=== PATIENT | male | born 1950 ===

== ENCOUNTER 2021-05-08 12:18 | Emergency (ER) | payer SELFPAY | END 2021-05-08 19:56 | LOC: ER 12:25 | DX: R69 Illness, unspecified (principal) ==

== ENCOUNTER 2021-05-08 12:21 | Emergency (ER) | payer MEDICARE, OTHER, SELFPAY ==
--- NOTE | 2021-05-08 12:15 | DI.RAD_ITS ---
Exam(s) XR SHOULDER LT COMPLETE 2+V EXAM: XR SHOULDER LT COMPLETE 2+V CLINICAL HISTORY: Left shoulder deformity, R/O Fracture/Dislocation. TECHNIQUE: 2D digital imaging was performed. COMPARISON: No exams were available for comparison FINDINGS: There is an oblique fracture of the humeral head and neck. This extends through the inferior aspect of the greater tuberosity and extends a mid medial E to violate the medial cortex where there is a co mminuted fragment in the inferior recess area. There is no dislocation of the glenohumeral joint. S ubacromial space is not diminished. AC joint is not dislocated and there is no obvious fracture of t he ipsilateral clavicle. No adjacent rib fractures identified. IMPRESSION: DATA REPOSITORY: RADIATION DOSE DELIVERED:
[2021-05-08 12:23] VITALS: BP 131/75; PULSE 60; TEMP 37.1; O2SAT 98
--- NOTE | 2021-05-08 12:30 | W.ED.GENAD ---
Discharge Plan Disposition Patient Disposition: HOME Condition: Stable Discharge Details Clinical Impression: Comminuted left humeral fracture Primary Care Provider: Narcisa,Local ED Provider: Ada Ibarra Home Meds and New Rx's Prescriptions: New tramadol 50 mg tablet 50 mg PO Q8H PRN (Reason: pain) 3 Days Qty: 7 RF: 0 No Action losartan 25 mg Tablet PO DAILY RF: 0 Discharge Instructions Instructions: Proximal Humerus Fracture (ED) Additional Instructions: Wear sling continuously for immobilization. Please take Tylenol or Ibuprofen with food every 4-6 hours as needed for pain and swelling. Take tramadol as directed with food no driving. Dr. Tavares with orthopedics will call you to arrange follow-up. If you have any worsening numbness tingling cold blue hand please return to the ED or call orthopedics immediately. Follow up with primary care provider in 3-5 days. Return to ED sooner if any worsening or concerns. Increase oral fluids. Referrals: Barney Tavares MD [ [facility] ST[facility]FF PHYSICIAN] - Discharge Data Discharge Date/Time-TO BE ENTERED AT DEPARTURE: 05/08/21 15:35 Medical Decision Making 70-year-old male presents to the ER with chief complaint of fall. Patient states that he was on top of a pool table on a chair working on an alarm system when the chair leg broke and he fell backwards. He denies hitting his head no loss of consciousness denies any C-spine, T-spine pain. He is complaining of left shoulder pain. Denies any chest pain abdominal pain. Pelvis is stable. He is alert and oriented x4 upon arrival. 1325: X-ray shows proximal humeral head comminuted fracture Ortho paged. 1328: Spoke with RN in OR Dr. Tavares in OR at this time. Will call back. 1338: Spoke with [facility] OR nurse once again regarding patient case and details. 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 I did speak with Dr. Tavares with orthopedic surgeon he was able to personally view the x-rays. He recommends a sling and follow-up with Ortho within 1 week. He did give recommendations for orthopedic surgeon around [place] area where patient is from. Discussed plan of care with patient who verbalized understanding. Patient was given prescription for tramadol sent home 2 tablets here in the department. Instructed to take Tylenol or ibuprofen as needed for pain and swelling. Instructed to wear sling at all times for immobilization. HPI General Mode of arrival: ambulatory. Date/Time Provider Initiated Documentation: 05/08/21 12:22. Limitations to Documentation: no limitations. Information obtained by: patient. HPI Narrative: 70-year-old male presents to the ER with chief complaint of fall. Patient states that he was on top of a pool table on a chair working on an alarm system when the chair leg broke and he fell backwards. He denies hitting his head no loss of consciousness denies any C-spine, T-spine pain. He is complaining of left shoulder pain. Denies any chest pain abdominal pain. Pelvis is stable. He is alert and oriented x4 upon arrival. Related Data Home Medications Medication Instructions Recorded Confirmed losartan mg PO DAILY 05/08/21 tramadol 50 mg PO Q8H PRN 3 Days #7 tab 05/08/21 Previous Rx's Medication Instructions Recorded tramadol 50 mg PO Q8H PRN 3 Days #7 tab 05/08/21 Allergies Allergy/AdvReac Type Severity Reaction Status Date / Time shellfish derived Allergy Unverified 05/08/21 12:28 Ctnkqfk-Ubt-Sok Reductase Allergy Unverified 05/08/21 12:28 Inhibitor General Stated Complaint: Orthopedic TRISTAN: 3 Review of Systems All systems reviewed & are unremarkable except as noted in HPI and below Musculoskeletal Musculoskeletal: Reports as per HPI, Denies back pain, Reports deformity (Left shoulder), Reports arthralgias, Reports loss of height and Reports numbness (Left upper extremity distal radial pulses intact) Neurologic Neurologic: Reports numbness (Left upper extremity distal radial pulses intact) [facility] Social History Smoking/Tobacco Use Status: Never Smoking risk assessment performed?: Yes Alcohol Intake: current Alcohol Intake frequency: a few times a month Drug use: Occasionally Substance use type: marijuana Do you feel safe at home: Yes Do you feel safe in your relationship?: Yes Exam Narrative Exam Narrative: General: Well Developed, Awake and Alert, conversant. Skin: Warm and Dry HEENT: Head: No palpable deformities, Normocephalic Eyes: Pupils PERRLA, EOM's intact. No periorbital eccymosis or step off Ears: Canal patent. Tympanic membranes are clear . No booker's sign, no hemptympanum. Nose/Face: Atraumatic. Facial bones nontender to palpation and stable with manipulation. Mouth/Throat: No intraoral trauma. Teeth and mandible are intact. Neck: No midline tenderness, no step off, no deformity to palpation of C-spine. Trachea midline. Chest: No surface trauma. Nontender without crepitus or deformity. Lungs clear to ausculatation bilaterally. Heart: RRR, no rubs, murmurs or gallop. Abdomen: No abrasions, ecchymosis, or surface trauma. Nondistended. Nontender to palpation no guarding, rebound, or rigidity. Pelvis: Nontender to palpation and stable to compression. Femoral pulses strong and equal Extremities no surface trauma. Sensation intact. Peripheral pulses intact and equal. See extremity assessment below for left shoulder. Neuro: ANO x4, GCS 15, cranial nerves II through XII intact. Motor and sensory exam nonfocal. Reflexes are symmetric. Extrem Left upper extremity: normal capillary refill, shoulder/upper arm Details: deformity Location: of the shoulder joint (Loss of height, anterior dimpling noted) Location: anteriorly, elbow/forearm Details: normal to inspection, wrist Details: normal to inspection and hand Details: normal to inspection, normal capillary refill and neurosensory exam normal; no edema Course Vital Signs Vital signs: Vital Signs Temperature 37.1 C 05/08/21 12:23 Pulse 60 05/08/21 12:23 Blood Pressure 131/75 05/08/21 12:23 Pulse Oximetry 98 05/08/21 12:23 Temperature 37.1 C 05/08/21 12:23 Temperature Source Temporal Artery Scan 05/08/21 12:23 Pulse 60 05/08/21 12:23 Respiratory Effort Non-Labored 05/08/21 12:26 Blood Pressure 131/75 05/08/21 12:23 Blood Pressure Position Sitting 05/08/21 12:23 Pulse Oximetry 98 05/08/21 12:23 Oxygen Delivery Method Room Air 05/08/21 12:23 Oxygen Flow Rate 0 05/08/21 12:23 Pain Level 10 05/08/21 12:23
[2021-05-08] MEDS: HYDROmorphone 2 MG/ML VIAL 1 MG IVP (13:04)
[2021-05-08] MEDS: Normal Saline 1,000 ML 1000 ML IV (13:04)
[2021-05-08] MEDS: Normal Saline Flush 10 ML SYR IVP (13:05)
[2021-05-08] MEDS: Ketorolac 30 MG/ML VIAL IVP (14:22)
[2021-05-08 15:35] VITALS: BP 131/75; PULSE 60; TEMP 37.1; O2SAT 98
== END 2021-05-08 15:35 | disposition home or self-care (01) ==
PROVIDERS: Emergency Provider Registered Nurse Emergency
DX: S42.292A Other displaced fracture of upper end of left humerus, initial encounter for closed fracture (principal); W07.XXXA Fall from chair, initial encounter; W17.89XA Other fall from one level to another, initial encounter
CPT/HCPCS: 23600; 96361; 96374; 96375; 99284; 73030; 99282; J1885